=== PATIENT | female | born 1990 | race Caucasian/White ===

== ENCOUNTER 2021-02-18 11:58 | Emergency (ER) | payer OTHER ==
[~2021-02-18] VITALS: Ht 167.6 cm; Wt 57.1 kg
[2021-02-18] MEDS ORDERED: NOHOMEMEDICATIONS (12:26)
[2021-02-18 14:15] VITALS: BP 120/60
[2021-02-18] MEDS ORDERED: NORCO5 PO (14:42)
== END 2021-02-18 14:15 | disposition home or self-care (01) ==
LOC: ER 11:58
DX: S42.031A Displaced fracture of lateral end of right clavicle, initial encounter for closed fracture (principal); E03.9 Hypothyroidism, unspecified; F17.210 Nicotine dependence, cigarettes, uncomplicated; W01.0XXA Fall on same level from slipping, tripping and stumbling without subsequent striking against object, initial encounter; Y93.89 Activity, other specified; Y92.89 Other specified places as the place of occurrence of the external cause; Y99.8 Other external cause status